=== PATIENT | female | born 1955 ===

== ENCOUNTER → 2018-07-15 19:56 | Outpatient (REF) | payer OTHER, MEDICAID, SELFPAY ==
[2018-07-15 20:55] LABS: Free T3, Triiodothyronine Free 2.72 pg/mL (2.77-5.27)
[2018-07-15 21:09] LABS: Thyroid Stimulating Hormone 8.04 uIU/mL (0.47-4.68)
== END ==
LOC: LAB 19:56
PROVIDERS: Visit Provider Naturopath
DX: E03.9 Hypothyroidism, unspecified (principal)
CPT/HCPCS: 84439; 84443; 84481